=== PATIENT | male | born 1995 | race Two or more races ===

== ENCOUNTER 2025-01-09 18:11 | Emergency (ER) | payer OTHER, SELFPAY ==
[2025-01-09 18:12] VITALS: BMI 29.7
[2025-01-09 18:40] VITALS: BP 156/90; PULSE 66; RESP 16; TEMP 36.9; O2SAT 99
--- NOTE | 2025-01-09 18:52 | XR_ITS ---
Examination: Hand, left 3 views Technique: Hand AP, oblique, lateral 3 views Date and time of exam: January 09, 2025 1905 hrs. Indications: Laceration injury to the hand today with fifth digit pain Findings: Old healed fracture distal radius No acute fracture No opaque foreign body Impression: No opaque foreign body
--- NOTE | 2025-01-09 19:24 | PD.EDADULT ---
ED General RME/HPI General Chief complaint: Hand/Wrist Problems Stated complaint: CUT L PINKY FINGER AT WORK Time Seen by Provider: 01/09/25 18:47 Arrival date/time: 01/09/25 18:11 CC: Left fifth digit pain HPI patient got caught between 2 rollers at work today causing a laceration and pain to the left fifth digit. Onset of 4:00 this afternoon. Patient is awake alert oriented localized pain is 2-3 on a 10 scale. Denies any numbness or tingling in the finger. Related Data Previous Rx's ?Medication ?Instructions ?Recorded cephalexin 500 mg capsule 500 mg PO BID #14 caps 01/09/25 Allergies Allergy/AdvReac Type Severity Reaction Status Date / Time No Known Allergies Allergy Verified 01/09/25 18:14 Review of Systems Review of Systems Narrative Review of Systems: GEN: No fever, no chills, no weight loss EYES: No discharge, no visual changes, no pain HEENT: No ear pain, no congestion, no sore throat PULM: No shortness of breath, no cough, no congestion CV: No chest pain, no dyspnea on exertion, no palpitations GI: No nausea, no vomiting, no diarrhea, no pain, no constipation : No frequency, no urgency, no dysuria MUSC/SKEL: No joint pain, no back pain SKIN: No rash PSYCH: No hallucinations, no depression HEME/LYMPH: No easy bleeding or bruising tendencies NEURO: No weakness, no headache Past Medical History Social History SMOKING STATUS: Current some day smoker ED Exam Narrative Physical exam: [General: Obese not in cot no acute distress Head normocephalic HEENT: Within acceptable limits Neck is supple nontender Chest equal chest rise nontender to palpation Respiratory: Clear to auscultation no wheezes crackles or rubs CV: Rate rhythm is regular no murmurs rubs or clicks Abdomen is distended secondary to body habitus soft nontender no masses positive bowel sounds all 4 quadrants Back: No CVA tenderness no spinous process tenderness from cervical spine thoracic and lumbar spine Skin: 4 cm full-thickness laceration longitudinal along the palmar aspect of the left fifth digit. Full range of motion cap refill less than 2 seconds otherwise skin is intact no petechiae rash induration ulceration or crepitus Extremities: Moving all extremity against resistance cap refill less than 2 seconds neurosensory intact Neuro: Awake alert oriented x3 Glascow coma 15 no focal deficits] Course Quality Measures none Orders Category Date Time Status Set Up Suture Tray STAT Care 01/09/25 18:53 Active XR hand comp LT min 3V Stat Exams 01/09/25 18:52 Taken Lidocaine 1% 20 ml [Xylocaine 1% 20 ML] Med 01/09/25 18:53 Discontinued 20 ml INFL X1 ONE Vital Signs Vital signs: Vital Signs Temperature 98.4 F 01/09/25 18:40 Pulse Rate 66 01/09/25 18:40 Respiratory Rate 16 01/09/25 18:40 Blood Pressure 156/90 H 01/09/25 18:40 Pulse Oximetry (%) 99 01/09/25 18:40 Oxygen Delivery Method Room Air 01/09/25 18:40 Procedures -ED Procedure Comment Laceration repair verbal sensate obtained anesthesia 1% lidocaine with epinephrine 4 mL injected into the base of the left fifth digit forming a digital block. Site was cleaned and probed no foreign body was found site was approximated with 3 interrupted sutures of 3-0 Ethilon with good approximation without complication patient tolerated the procedure well bulky dressing was applied. [facility] Patient data External records reviewed:: [facility] previous records Clinical information provided by:: patient Social determinants that could affect healthcare access:: none Patient has the following chronic illnesses:: None How is presenting disease/condition affected by chronic disease/condition?: uneffected by Evaluation data The following diagnostics were reviewed and interpreted by me:: radiology exam(s) Lab and/or radiology exams considered but not ordered:: X-rays inter by me read by radiology shows no acute fracture malalignment or dislocation Interpretation Summary: Finger laceration Medications Medications considered but not ordered:: None Medication administrations:: Medication Administration History Discontinued Medications Lidocaine HCl (Lidocaine Hcl 1% 20 Ml Vial) 20 ml INFL X1 ONE Stop: 01/09/25 18:54 None Consultations Consultation(s) initiated? (list below): No Diagnosis Differential Diagnosis ED Complaint MDM: Laceration fracture open fracture Most likely diagnosis given after review of the tests above:: Finger laceration Admission Indicated Admission indicated?: not indicated Explain why admission is indicated or not indicated:: Stable for discharge Admission Request Was there a request for admission?: No Disposition Plan Disposition Plan: Discharge Discharge Attestation Discharge Attestation: The patient and all family members were given an opportunity to ask questions and understood the discharge instructions. Discharge instructions specifically effects, indications for sooner follow up or return to the emergency department, and the expected course of current diagnosis. Patient condition: Stable Medical Decision Making Differential Diagnosis Differential Diagnosis: Laceration fracture open fracture Discharge Plan Plan Patient Disposition: HOME (Self Care) Patient condition on transfer: Stable Prescriptions/Referrals Prescriptions/Med Rec: New cephalexin 500 mg capsule 500 mg PO BID Qty: 14 0RF Referrals: No Primary/Family,Physician [Primary Care Provider] - In 1 week Problem List Clinical Impression: Finger laceration Patient/Caregiver Discharge Instructions Education Materials: ED Laceration: All Closures Additional Instructions: Keep the site clean and dry if there is any signs of infection such as redness and swelling return the emergency room medially for further evaluation. Take all antibiotics until as prescribed until completely gone. Follow-up with Workmen's Comp. Sutures out in 14 days Print Language: Yakut Stand Alone Forms: Ericka Award Info., Patient Portal Info Letter, Work/School Release PA/JASON Supervising Physician PA/JASON Supervising Physician: Dominik Campos ENP
== END 2025-01-09 19:46 | disposition home or self-care (01) ==
PROVIDERS: Emergency Provider Emergency Medicine
DX: S61.217A Laceration without foreign body of left little finger without damage to nail, initial encounter (principal); W23.0XXA Caught, crushed, jammed, or pinched between moving objects, initial encounter; Y99.0 Civilian activity done for income or pay
CPT/HCPCS: 12002; 73130; 99283